=== PATIENT | male | born 1945 | race Caucasian/White ===

== ENCOUNTER → 2023-07-31 | Outpatient (CLI) | payer MEDICARE, OTHER | LOC: PET 10:45 | PROVIDERS: ATTEND Internal Medicine Hematology & Oncology | DX: C61 Malignant neoplasm of prostate (principal); C34.82 Malignant neoplasm of overlapping sites of left bronchus and lung | CPT/HCPCS: 78815; A9552 ==

== ENCOUNTER 2023-12-12 11:00 | Outpatient (CLI) | payer MEDICARE, OTHER | END 2023-12-12 11:01 | disposition home or self-care (01) | LOC: PET 11:00 | PROVIDERS: ATTEND Internal Medicine Hematology & Oncology | DX: C34.82 Malignant neoplasm of overlapping sites of left bronchus and lung (principal); C16.9 Malignant neoplasm of stomach, unspecified; M79.89 Other specified soft tissue disorders | CPT/HCPCS: 78815; A9552 ==

== ENCOUNTER 2024-06-16 14:31 | Outpatient (CLI) | payer MEDICARE, OTHER ==
[2024-06-16] MEDS ORDERED: Iopamidol 30 ML ONE (14:45)
[2024-06-16] MEDS ORDERED: Sodium Chloride 0.9% 500 ML ONE (14:50)
== END 2024-06-16 14:32 | disposition home or self-care (01) ==
LOC: RAD 14:31
PROVIDERS: ATTEND Internal Medicine Hematology & Oncology
DX: C61 Malignant neoplasm of prostate (principal); C16.2 Malignant neoplasm of body of stomach
CPT/HCPCS: 36598; J1642; J7030; Q9967

== ENCOUNTER 2025-02-17 14:50 | Outpatient (CLI) | payer MEDICARE, OTHER | END 2025-02-17 14:51 | disposition home or self-care (01) | LOC: ULT 14:50 | PROVIDERS: ATTEND Internal Medicine Hematology & Oncology | DX: M79.604 Pain in right leg (principal); C61 Malignant neoplasm of prostate; C16.2 Malignant neoplasm of body of stomach ==

== ENCOUNTER → 2025-03-08 | Day surgery (SDC) | payer MEDICARE, OTHER ==
[~2025-03-08] MED LIST: Lidocaine 1% w/Epinephrine 1:100K 20 ML VIAL ONE; Sodium Bicarbonate 2.5 MEQ/5 ML SDV ONE
[2025-03-08 10:40] LABS: #Basophils 0.06 10x3/uL (0.0-0.2); #Eosinophils 0.10 10x3/uL (0.0-0.7); #Monocytes 0.29 10x3/uL (0.11-0.59); #Neutrophils 3.76 10x3/uL (1.40-6.50); %Basophils 1.2 % (0.0-1.0); %Eosinophils 2.0 % (0.0-10.0); %Lymphocytes 14.2 % (21.0-51.0); %Monocytes 5.9 % (0.0-10.0); %Neutrophils 76.1 % (42.0-75.0); Hematocrit 41.6 % (42.0-52.0); Hemoglobin 13.3 g/dL (14.0-18.0); Mean Corpuscular Hemoglobin 32.0 pg (27.0-31.0); Mean Corpuscular Volume 100.0 fL (78.0-98.0); Platelet Count 256 10x3/uL (130-400); Red Blood Cell (RBC) Count 4.16 mill/uL (4.70-6.10); White Blood Cell (WBC) Count 4.94 10x3/uL (4.8-10.8)
[2025-03-08 10:54] LABS: INR-International Normal Ratio 1.2; Prothrombin Time 15.0 sec (12.0-14.7)
[2025-03-08 10:55] LABS: PTT 43.9 sec (22.9-36.1)
[2025-03-08 13:27] VITALS: BP 126/72
== END ==
LOC: ULT 10:26
PROVIDERS: ATTEND Internal Medicine Hematology & Oncology
PROC: 0W9G3ZZ Drainage of Peritoneal Cavity, Percutaneous Approach (ICD-10-PCS; principal; 2025-03-08)
DX: R18.8 Other ascites (principal); C61 Malignant neoplasm of prostate; C16.2 Malignant neoplasm of body of stomach; M79.604 Pain in right leg; I10 Essential (primary) hypertension; Z96.641 Presence of right artificial hip joint
CPT/HCPCS: 36415; 49083; 85025; 85610; 85730

== ENCOUNTER 2025-04-05 10:22 | Day surgery (SDC) | payer MEDICARE, OTHER ==
[2025-04-05] MEDS ORDERED: Lidocaine 1% PF 5 ML VIAL ONE (10:38)
[2025-04-05] MEDS ORDERED: Sodium Bicarbonate 2.5 MEQ/5 ML SDV ONE (10:38)
== END 2025-04-05 11:30 | disposition home or self-care (01) ==
LOC: ULT 10:22
PROVIDERS: ATTEND Internal Medicine Hematology & Oncology
PROC: 0W9G3ZZ Drainage of Peritoneal Cavity, Percutaneous Approach (ICD-10-PCS; principal; 2025-04-05)
DX: R18.8 Other ascites (principal); I10 Essential (primary) hypertension; C61 Malignant neoplasm of prostate; C16.2 Malignant neoplasm of body of stomach; Z98.84 Bariatric surgery status; Z96.651 Presence of right artificial knee joint
CPT/HCPCS: 49083